=== PATIENT | male | born 1990 | race Caucasian/White ===

== ENCOUNTER 2019-06-13 10:10 | Emergency (ER) | payer MEDICAID, OTHER ==
[~2019-06-13] VITALS: Ht 177.8 cm; Wt 99.8 kg
[~2019-06-13 10:10] MED LIST: CYCL-1 PO
[2019-06-13 10:35] VITALS: BP 143/99
[2019-06-13] MEDS ORDERED: CYCL-1 PO (12:26)
[2019-06-13] MEDS ORDERED: ibuprofen 200mg tablet PO ONE (12:30)
== END 2019-06-13 12:56 | disposition home or self-care (01) ==
LOC: ER 10:11
DX: S39.012A Strain of muscle, fascia and tendon of lower back, initial encounter (principal); J45.909 Unspecified asthma, uncomplicated; F17.200 Nicotine dependence, unspecified, uncomplicated; Z79.899 Other long term (current) drug therapy; X50.1XXA Overexertion from prolonged static or awkward postures, initial encounter; Y93.89 Activity, other specified; Y92.89 Other specified places as the place of occurrence of the external cause; Y99.8 Other external cause status
CPT/HCPCS: 99283